=== PATIENT | male | born 1995 | race Caucasian/White ===

== ENCOUNTER 2017-11-23 17:06 | Emergency (ER) | payer BC ==
[~2017-11-23] VITALS: Ht 177.8 cm; Wt 87.6 kg
[~2017-11-23 17:06] MED LIST: HYDR25TA11 PO; ISOT40CA13 PO
[2017-11-23 18:45] VITALS: BP 128/83
== END 2017-11-23 19:38 | disposition home or self-care (01) ==
LOC: ED 19:25
DX: F41.1 Generalized anxiety disorder (principal)
CPT/HCPCS: 93005; 99284